=== PATIENT | female | born 1955 ===

== ENCOUNTER 2024-06-01 12:05 | Outpatient (AMB) | payer OTHER, SELFPAY ==
--- NOTE | 2024-06-01 12:55 | AM.OFFWIN_ITS ---
Intake Vital Signs 06/01/24 13:00 Weight 174 lb BP 110/72 Blood Pressure Location Lt brachial Position Sitting Pulse 88 Pulse Source Pulse Oximeter Pulse Oximetry (%) 97 Oxygen Delivery Method Room Air Intake Visit Reasons: [employer]-nose/chest congestion, cough, headaches Intake Note: Patient here for congestion, cough and headaches that started yesterday morning. Patient Tobacco Use Status: Former Tobacco user Allergies No Known Allergies Allergy (Verified 06/01/24 12:59) Do you need a note to return to daycare/school/sports/work: No HPI [employer]-nose/chest congestion, cough, headaches HPI Details This note is constructed using voice recognition software. While every effort has been made to ensure accuracy, reroller hand errors may have been included. The patient is a 69 year old female who presents to the clinic today with cough, congestion, headache, body ache, chills since yesterday. She denies shortness of breath. She does go to a program regularly. She does not know if anyone is sick at the program. [facility], [facility] Social History Patient Tobacco Use Status: Former Tobacco user Review of Systems Const All systems reviewed & are unremarkable except as noted in HPI and below Physical Exam Vital Signs: Last Vital Signs Pulse 88 06/01/24 13:00 BP 110/72 06/01/24 13:00 Pulse Ox 97 06/01/24 13:00 Oxygen Delivery Method Room Air 06/01/24 13:00 Const General: cooperative, healthy appearing, comfortable and no acute distress Orientation/consciousness: patient oriented x3 Limitations: no limitations HEENT Head: Yes normal to inspection Ears: hearing grossly normal bilaterally, external ears normal and TM's normal bilaterally General nose exam: Normal external nose present, Normal nares present and No nasal discharge present Face and sinus: Yes normal facial exam and Yes sinuses nontender Mouth: Normal oral and palatal mucosa present and moist mucous membranes Throat: Yes tonsils normal, Yes uvula midline and Yes posterior oropharynx abnormal (Erythema) Eyes General: appearance normal, both eyes and all related structures Neck Neck: Yes normal visual inspection Resp Effort & Inspection: normal respiratory effort, able to speak in complete sentences, Actively coughing, no respiratory distress, not tachypneic, no tripod positioning and no use of accessory muscles Auscultation: clear to auscultation bilaterally Cardio Jugular venous distension: no JVD Rate: regular rate Rhythm: regular rhythm Heart sounds: S1 normal heart sound present, S2 normal heart sound present, no click, no gallops, no murmurs and no rubs Skin General skin exam: no rashes or lesions noted, elasticity normal and turgor normal Neuro General: patient oriented x3 Extrem General: Yes normal to inspection and Yes no clubbing, cyanosis or edema Assessment & Plan Assessment & Plan (1) URI (upper respiratory infection): Code(s): J06.9 - Acute upper respiratory infection, unspecified Qualifiers: URI type: unspecified URI Qualified Code(s): J06.9 - Acute upper respiratory infection, unspecified Plan: Viral swab obtained to rule out Covid based on symptoms. Advised mask wearing while symptomatic and quarantine per current CDC guidelines. Reviewed at home support methods including hydration, humidification, vix vapor rub, sinus rinse. Discussed treatment with antiviral therapy for covid with paxlovid including appropriate use and side effects, and need to start medication within 5 day of symptom onset, preferably within 48 hours of symptom onset. Patient wishes to proceed with paxlovid. Advised follow up with worsening symptoms such as dyspnea at rest, which would require emergent evaluation. Plan See above for full details and plan. Coding Level of Care Code Est Pt Level 3 (52957) Diagnoses Upper respiratory tract infection, unspecified type J06.9 URI type: unspecified URI
[2024-06-01 13:00] VITALS: BP 110/72; PULSE 88; O2SAT 97
== END 2024-06-01 13:59 | disposition home or self-care (01) ==
PROVIDERS: Visit Provider Registered Nurse
DX: J06.9 Acute upper respiratory infection, unspecified (principal)

== ENCOUNTER 2024-06-01 12:05 | Outpatient (REF) | payer OTHER, SELFPAY ==
[2024-06-01 18:01] LABS: Influenza A PCR POSITIVE (Negative); Influenza B PCR NEGATIVE (Negative); Resp Syncy Virus RNA Qual PCR NEGATIVE (Negative); SARS COV2 PCR INHOUSE NEGATIVE (Negative)
== END 2024-06-01 12:06 | disposition home or self-care (01) ==
LOC: HO.LNP 12:05
PROVIDERS: Visit Provider Registered Nurse
DX: J06.9 Acute upper respiratory infection, unspecified (principal)
CPT/HCPCS: 0241U; 99212